=== PATIENT | female | born 1960 | race African-American/Black ===

== ENCOUNTER 2017-01-26 18:37 | Inpatient (IN) | payer OTHER ==
[~2017-01-26] VITALS: Ht 160 cm; Wt 53.8 kg
--- NOTE | ~2017-01-26 | DS ---
Unit #: [id number] #: [id number] Patient: OCTAVIA PIPER [id number] [address] [address] [id number] I MR#: [id number] NAME: OCTAVIA PIPER ROOM: 313 Age: 56 Sex: F Admission Date: 01/26/2017 : 1960 Discharge Date: Attending Physician: Juliana Bello M.D. DISCHARGE SUMMARY DISCHARGE DIAGNOSES 1. Hypertensive urgency. 2. Acute hypoxic respiratory failure. 3. Chronic obstructive pulmonary disease with exacerbation. 4. History of asthma. 5. Smoking. 6. Abnormal TSH with a low TSH of 0.32. Follow up outpatient. CONSULTATIONS None. PROCEDURES None. DIAGNOSTIC STUDIES LABORATORY: Hemoglobin 5.5 and WBC 7.2. Vitamin B12 is 622. TSH 0.32. Creatinine 0.6. Liver enzymes normal. BNP 50. IMAGING: Chest x-ray negative. ALLERGIES None. DISCHARGE MEDICATIONS 1. Albuterol mini-nebs q.6 p.r.n. shortness of breath. 2. Nicotine 21 mg transdermal daily. 3. Norvasc 10 daily. 4. Lisinopril 10 daily. 5. Prednisone tapering dose. 6. Symbicort 160 mcg inhalation b.i.d. 7. Albuterol MDI 2 puffs inhalation q.6 p.r.n. shortness of breath. HOSPITAL COURSE A 56-year-old admitted because of shortness of breath. Hypertensive urgency. Patient was given IV hypertension medication Norvasc and lisinopril. Currently, blood pressure is 122/71. I gave prescriptions. Stable. Acute hypoxic respiratory failure from COPD, currently resolved. Chronic obstructive pulmonary disease with exacerbation with a history of asthma and history of smoking, likely COPD rather than asthma. Patient received IV Solu-Medrol and DuoNebs. Patient will be discharged on Unit #: [id number] #: [id number] Patient: OCTAVIA IPPER albuterol, Symbicort, and prednisone tapering dose. Low TSH. Needs outpatient followup. DISPOSITION Discharge home. FOLLOWUP With family physician in one week's time for abnormal thyroid level, COPD, and hypertension. Discharge time taken is 32 minutes. Dictated by... Juliana Bello M.D. MALIA/jesse TD: 01/27/2017 14:57 JOB #: [id number] DISCHARGE SUMMARY Page 1 of 1 X Juliana Bello MD X DISCHARGE SUMMARY
--- NOTE | ~2017-01-26 | HP ---
Unit #: [id number] #: [id number] Patient: OCTAVIA PIPER [id number] [address] [address] [id number] I MR#: [id number] NAME: OCTAVIA PIPER ROOM: 09112 Age: 56 Sex: F Admission Date: 01/26/2017 : 1960 Attending Physician: Maximo Alavrenga M.D. HISTORY AND PHYSICAL REASON FOR ADMISSION Hypertensive urgency, acute respiratory failure/asthma exacerbation. HISTORY OF PRESENT ILLNESS The patient is a very pleasant 56-year-old female who has not seen a primary care physician in many years. She states that she takes no medications. She was told in the past that she has a prior history of asthma, as well as likely underlying COPD secondary to her tobacco abuse. She presented with a 24-hour history of increased dyspnea on exertion. 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 She began developing shortness of breath to the point where she could no longer walk more than a few steps without having to stop. She presented to the ER where on initial evaluation was noted to have a blood pressure of 204/130. She was given Solu-Medrol and clonidine, as well as nitroglycerin paste, and we were asked to admit her for evaluation and/or further workup. PAST MEDICAL HISTORY 1. Asthma. 2. Likely underlying COPD. 3. Tobacco abuse. PAST SURGICAL HISTORY section. HOME MEDICATIONS None. ALLERGIES No known drug allergies. SOCIAL HISTORY Positive tobacco use and positive alcohol use just weekends. Patient adamantly denies recreational drug use. 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 FAMILY HISTORY Reviewed and noncontributory or non-pertinent. REVIEW OF SYSTEMS Please see HPI. Twelve points otherwise negative except for those positive and noted in the HPI. Unit #: [id number] #: [id number] Patient: OCTAVIA PIPER PHYSICAL EXAMINATION VITAL SIGNS: Temperature 97.5, pulse 100, respiratory rate 20, and blood pressure 204/130. GENERAL APPEARANCE: Patient is a very pleasant 56-year-old female sitting up comfortably in no acute distress. HEAD: Atraumatic. EARS: Tympanic membranes do not reveal any erythema or injection. NECK: Supple. CARDIOVASCULAR: S1 and S2 without murmur. RESPIRATORY: Prolonged expiration noted. Bilateral wheezing noted. GASTROINTESTINAL/ABDOMEN: Nontender and nondistended. LOWER EXTREMITIES: No evidence of any lower extremity edema. NEUROLOGIC: Alert and oriented x3. No evidence of any focal nerve deficits. PSYCHIATRIC: Patient demonstrates normal mood and affect. ER COURSE Please see above. DIAGNOSTIC STUDIES INITIAL LABORATORY: Cardiac enzyme sets x2 negative. BNP 50 and unremarkable. INR 1.1. BMP, as well as LFTs unremarkable. CBC shows a hemoglobin of 14.3 and white count 10.4. CARDIOLOGY: EKG shows normal sinus. INITIAL ADMISSION DIAGNOSES 1. Hypertensive urgency. 2. Acute respiratory failure, likely asthma exacerbation/chronic obstructive pulmonary disease exacerbation. 3. Ongoing tobacco abuse. PLAN Admission to telemetry floor. Blood pressure management. COPD management with IV Solu-Medrol and aerosols. Symptom management and pain control. Once blood pressure is more stable and patient returns to baseline O2/room air for breathing, she likely can be discharged home. She was extensively counseled on the importance of followup with a primary care physician at time of discharge. All questions have been answered. She expressed a desire to be Full Code. Further hospital course to follow. Dictated by Valentina Perez/jesse TD: 01/26/2017 22:10 JOB #: [id number] Unit #: [id number] #: [id number] Patient: OCTAVIA PIPER HISTORY AND PHYSICAL Page 1 of 1 X Maximo Alvarenga MD X HISTORY AND PHYSICAL
--- NOTE | ~2017-01-26 | CR72 ---
[facility] A Service of [facility] & [facility] RADIOLOGY TEXT RESULTS PATIENT: OCTAVIA PIPER LOCATION: [facility] 313- : 60 UNIT #: [id number] AGE: [address]: Juliana Bello MD SEX: F ORDER DR: [id number] [facility] [address] [facility]. [place], [place] [address] [id number] I MR#: [id number] Acc #: [id number] NAME: OCTAVIA PIPER : 1960 SEX: F STUDY DATE/TIME: 01/26/2017 19:52 UNIT: [address] ROOM: [facility] STUDY DESCRIPTION: CR Chest Single View Portable Attending Physician: Maximo Alvarenga M.D. Ordering Physician: Prabhjot Choudhury M.D. MEDICAL IMAGING REPORT This report is preliminary unless electronic signature is present EXAM Portable chest HISTORY Shortness of air, cough and congestion for 1 week. FINDINGS Mild hyperinflation of both lungs. Cardiac size and pulmonary vascularity are normal. No airspace infiltrates or effusions. IMPRESSION No acute findings. Dictated by... Chris Luna M.D. THIS IS AN ELECTRONICALLY VERIFIED REPORT Chris Luna M.D. at 01/27/2017 11:18 PM DFL/df TD: 01/27/2017 07:57 JOB #: [id number] MEDICAL IMAGING REPORT Page 1 of 1 COPY
--- NOTE | ~2017-01-26 | EKG ---
PATIENT: OCTAVIA PPIER UNIT #: [id number] Ventricular Rate: 78 BPM Atrial Rate: 78 BPM P-R Interval: 138 ms QRS Duration: 72 ms Q-T Interval: 394 ms QTC Calculation(Bezet): 449 ms P [place]: 85 degrees Calculated R [place]: 68 degrees Calculated T [place]: 66 degrees Diagnosis Line: Normal sinus rhythm Diagnosis Line: Possible Left atrial enlargement Diagnosis Line: Junctional ST depression, probably normal Diagnosis Line: Borderline ECG Diagnosis Line: Diagnosis Line: Confirmed by NISH PEMBERTON MD ([id number]) on 01/27/2017 Diagnosis Line: 6:24:36 PM INTERPRETING MD: NILAY DAVIS
[2017-01-26 19:24] LABS: POC - CKMB 3.6 ng/mL (0.0-7.9); POC - TROPONIN <0.05 ng/mL (<=0.05)
[2017-01-26 19:34] LABS: BASOPHIL% 0.3 % (0-2.5); DIFF IND NO; EOSINOPHIL# 0.4 X10e3 (0-0.7); EOSINOPHIL% 4.1 % (0.0-7.0); HEMATOCRIT 42.5 % (35.0-45.0); HEMOGLOBIN 14.3 gm/dL (12.0-16.0); LYMPHOCYTE# 2.8 X10e3 (1.0-3.5); LYMPHOCYTE% 26.6 % (17.0-45.0); MEAN CORPUSCULAR HEMOGLOBIN 30.9 PG (28-34); MEAN CORPUSCULAR HGB CONC 33.6 g/dL (30-36); MEAN PLATELET VOLUME 8.8 FL (6.5-11.5); MONOCYTE# 0.9 X10e3 (0-1.0); MONOCYTE% 8.4 % (3.0-12.0); NEUTROPHIL# 6.3 X10e3 (1.5-7.1); NEUTROPHIL% 60.6 % (40-75); PLATELET COUNT 269 X10e3 (140-420); RED BLOOD COUNT 4.61 X10e (3.90-5.30); RED CELL DISTRIBUTION WIDTH 13.9 % (11.0-15.5); WHITE BLOOD COUNT 10.4 X10e3 (4.0-10.5)
[2017-01-26 19:56] LABS: INR 1.1; PARTIAL THROMBOPLASTIN TIME 30.1 SECONDS (23.5-31.3); PROTHROMBIN TIME (PATIENT) 11.7 SECONDS (10.0-11.7)
[2017-01-26 19:57] LABS: ALBUMIN SERUM 4.6 g/dL (3.5-5.0); BILIRUBIN, DIRECT 0.1 mg/dL (0.0-0.2); BILIRUBIN,INDIRECT 0.1 mg/dL (0.0-0.9); BILIRUBIN,TOTAL 0.2 mg/dL (0.2-2.0); CALCIUM SERUM 9.9 mg/dL (8.4-10.2); CREATININE SERUM 0.7 mg/dL (0.6-1.4); GLOM FILT RATE Estimated 112.3 mL/min (>60); POTASSIUM 4.1 mmol/L (3.5-5.1); PROTEIN TOTAL SERUM 8.3 g/dL (6.0-8.3)
[2017-01-26 21:04] LABS: POC - CKMB 3.4 ng/mL (0.0-7.9); POC - TROPONIN <0.05 ng/mL (<=0.05)
[2017-01-27 06:53] LABS: BASOPHIL% 0.1 % (0-2.5); HEMATOCRIT 36.3 % (35.0-45.0); HEMOGLOBIN 12.4 gm/dL (12.0-16.0); LYMPHOCYTE# 0.8 X10e3 (1.0-3.5); LYMPHOCYTE% 11.7 % (17.0-45.0); MEAN CELL VOLUME 91.3 FL (83-96); MEAN CORPUSCULAR HEMOGLOBIN 31.3 PG (28-34); MEAN CORPUSCULAR HGB CONC 34.2 g/dL (30-36); MEAN PLATELET VOLUME 8.8 FL (6.5-11.5); MONOCYTE# 0.1 X10e3 (0-1.0); MONOCYTE% 0.7 % (3.0-12.0); NEUTROPHIL# 6.3 X10e3 (1.5-7.1); NEUTROPHIL% 87.5 % (40-75); PLATELET COUNT 237 X10e3 (140-420); RED BLOOD COUNT 3.98 X10e (3.90-5.30); RED CELL DISTRIBUTION WIDTH 13.7 % (11.0-15.5); WHITE BLOOD COUNT 7.2 X10e3 (4.0-10.5)
[2017-01-27 06:56] LABS: DIFF IND NO
[2017-01-27 07:36] LABS: BUN/CREATININE RATIO 13.33; CALCIUM SERUM 9.5 mg/dL (8.4-10.2); CREATININE SERUM 0.6 mg/dL (0.6-1.4); GLOM FILT RATE Estimated 118.1 mL/min (>60); POTASSIUM 4.3 mmol/L (3.5-5.1)
[2017-01-27] MEDS ORDERED: ALBUTEROL2.5 MG/3 M INH (15:16)
[2017-01-27] MEDS ORDERED: NICOTINE PATCH1 EACH TD (15:17)
[2017-01-27] MEDS ORDERED: NORVASC10 MG PO (15:18)
[2017-01-27] MEDS ORDERED: ZESTRIL10 M1 PO (15:18)
[2017-01-27] MEDS ORDERED: SYMBICORT INH (15:20)
[2017-01-27] MEDS ORDERED: PREDNISONE10 M1 PO (15:20)
[2017-01-27] MEDS ORDERED: ALBUTEROL17 GM INH (15:21)
== END 2017-01-27 17:55 | disposition home or self-care (01) | DRG 189 ==
LOC: CED 18:37 → CEDOF 21:20 → CED 21:44 → CEDOF 21:44 → C3A PCU 23:27
PROVIDERS: Emergency Medicine; Family Medicine
PROC: B24BYZZ Ultrasonography of Heart with Aorta using Other Contrast (ICD-10-PCS; principal; 2017-01-27)
DX: J96.01 Acute respiratory failure with hypoxia (principal); J44.1 Chronic obstructive pulmonary disease with (acute) exacerbation; J45.901 Unspecified asthma with (acute) exacerbation; I16.0 Hypertensive urgency; F17.210 Nicotine dependence, cigarettes, uncomplicated
CPT/HCPCS: 36415; 71010; 80048; 80061; 80076; 82553; 82607; 83036; 83880; 84443; 84484; 85025; 85379; 85610; 85730; 93005; 93306; 94640; 94760; 96374; 99285; J2930